=== PATIENT | male | born 1970 | race African-American/Black ===

== ENCOUNTER 2016-03-22 17:59 | Emergency (ER) | payer OTHER ==
[~2016-03-22] VITALS: Ht 172.7 cm; Wt 79.4 kg
[2016-03-22 17:59] VITALS: BP 143/99
[2016-03-22] MEDS ORDERED: KETOROLAC TROMETHAMINE INJ 30 MG/ML VIAL ONE (18:35)
[2016-03-22] MEDS ORDERED: KETOROLAC TROMETHAMINE INJ 60 MG/2 ML VIAL IM ONE (19:00)
== END 2016-03-22 19:11 | disposition home or self-care (01) ==
LOC: ER 18:02
DX: M16.11 Unilateral primary osteoarthritis, right hip (principal); G89.4 Chronic pain syndrome; Z98.890 Other specified postprocedural states
CPT/HCPCS: A4606; J1885; Z7610

== ENCOUNTER 2016-08-04 01:32 | Emergency (ER) | payer OTHER ==
[~2016-08-04] VITALS: Ht 167.6 cm; Wt 81.6 kg
[2016-08-04 01:41] VITALS: BP 120/82
[2016-08-04] MEDS ORDERED: IBUPROFEN 400 MG TABLET PO ONE (02:30)
[2016-08-04] MEDS ORDERED: IBUPROFEN 400 MG TABLET ONE (02:44)
== END 2016-08-04 03:38 | disposition home or self-care (01) ==
LOC: ER 01:34
DX: S79.911A Unspecified injury of right hip, initial encounter (principal); N43.3 Hydrocele, unspecified; M19.90 Unspecified osteoarthritis, unspecified site; W19.XXXA Unspecified fall, initial encounter; Y93.89 Activity, other specified; Y92.89 Other specified places as the place of occurrence of the external cause; Y99.9 Unspecified external cause status
CPT/HCPCS: 73502; 99284; A4606; Z7610; 73510-TC

== ENCOUNTER 2017-02-01 15:33 | Emergency (ER) | payer MEDICAID, OTHER ==
[~2017-02-01] VITALS: Ht 170.2 cm; Wt 81.6 kg
--- NOTE | 2017-02-01 15:45 | NUR ---
BRA 890 FROM HOME C/O WORSENING RT HIP PAIN. HX OF CHRONIC RT HIP PAIN, 12/12 AT THIS TIME. VSS
[2017-02-01] MEDS ORDERED: KETOROLAC TROMETHAMINE INJ 30 MG/ML VIAL ONE (16:06)
[2017-02-01] MEDS ORDERED: KETOROLAC TROMETHAMINE INJ 30 MG/ML VIAL IM ONE (16:30)
[2017-02-01 16:33] VITALS: BP 130/80
--- NOTE | 2017-02-01 16:34 | NUR ---
Patient discharged to home in stable condition. Written and verbal after care instructions given. Patient verbalizes understanding of instruction.
== END 2017-02-01 16:34 | disposition home or self-care (01) ==
LOC: ER 15:35
DX: G89.29 Other chronic pain (principal); M16.11 Unilateral primary osteoarthritis, right hip; F17.200 Nicotine dependence, unspecified, uncomplicated; Z98.890 Other specified postprocedural states
CPT/HCPCS: 96372; 99283; A4606; J1885; Z7610

== ENCOUNTER 2017-10-02 10:37 | Emergency (ER) | payer MEDICAID ==
[~2017-10-02] VITALS: Ht 175.3 cm; Wt 68.0 kg
--- NOTE | 2017-10-02 10:57 | NUR ---
A/OX3, NAD VSS C/O BILATERAL HIP PAIN, NO TRAUMA. WILL CONT TO MONITOR
--- NOTE | 2017-10-02 10:59 | NUR ---
DR. PORTILLO AT BEDSIDE FOR EVALUATION
--- NOTE | 2017-10-02 11:09 | NUR ---
pt requesting a pain pill before he gets discharged. dr feliciano notified.
[2017-10-02] MEDS ORDERED: TRAMADOL HCL 50 MG TABLET ONE (11:12)
[2017-10-02] MEDS ORDERED: IBUPROFEN 600 MG TABLET PO ONE ×2 (11:12→11:30)
[2017-10-02 11:18] VITALS: BP 143/94
--- NOTE | 2017-10-02 11:18 | NUR ---
Patient discharged to home in stable condition. Written and verbal after care instructions given. Patient verbalizes understanding of instruction.
[2017-10-02] MEDS ORDERED: TRAMADOL HCL 50 MG TABLET PO ONE (11:30)
== END 2017-10-02 11:19 | disposition home or self-care (01) ==
LOC: ER 10:38
DX: M16.11 Unilateral primary osteoarthritis, right hip (principal); G89.29 Other chronic pain; F17.200 Nicotine dependence, unspecified, uncomplicated; Z98.890 Other specified postprocedural states
CPT/HCPCS: 99283; A4606; Z7610

== ENCOUNTER 2018-04-13 12:14 | Emergency (ER) | payer MEDICAID ==
[~2018-04-13] VITALS: Ht 170.2 cm; Wt 72.6 kg
--- NOTE | 2018-04-13 13:08 | NUR ---
BIB RA 90 C/O RIGHT HIP PAIN ( CHRONIC ) NO RECENT INJURY. DIFFICULTY WITH AMBULATION. PT IS AOX4, VSS, RR EVEN AND UNLABORED. SKIN WARM, DRY, INTACT. NO ACUTE DISTRESS NOTED. FAMILY MEMBER AT BEDSIDE. READY FOR EVAL.
[2018-04-13] MEDS ORDERED: KETOROLAC TROMETHAMINE INJ 60 MG/2 ML VIAL IM ONE (13:30)
[2018-04-13] MEDS ORDERED: KETOROLAC TROMETHAMINE INJ 30 MG/ML VIAL ONE (13:41)
--- NOTE | 2018-04-13 14:57 | NUR ---
Antonio jones in [facility] - 04/13/18 at 1529 by DAVID Patient discharged to home in stable condition. Written and verbal after care instructions given. Patient verbalizes understanding of instruction.
--- NOTE | 2018-04-13 15:02 | NUR ---
Patient is resting comfortably in bed. Easily aroused. VSS
--- NOTE | 2018-04-13 15:14 | NUR ---
Patient discharged to home in stable condition. Written and verbal after care instructions given. Patient verbalizes understanding of instruction.
[2018-04-13 15:30] VITALS: BP 126/82
--- NOTE | 2018-04-13 15:53 | NUR ---
UNABLE TO DEPART PT. WILL ADVANCE TO DISCHARGE
== END 2018-04-13 15:53 | disposition home or self-care (01) ==
LOC: ER 12:14
DX: M16.11 Unilateral primary osteoarthritis, right hip (principal); G89.29 Other chronic pain; F12.90 Cannabis use, unspecified, uncomplicated
CPT/HCPCS: 96372; 99283; A4606; J1885

== ENCOUNTER 2020-04-20 07:16 | Emergency (ER) | payer MEDICAID ==
[~2020-04-20] VITALS: Ht 177.8 cm; Wt 73.5 kg
[2020-04-20 07:33] VITALS: BP 137/77
--- NOTE | 2020-04-20 07:38 | NUR ---
DR. DILLON AT BEDSIDE FOR EVAL.
[2020-04-20] MEDS ORDERED: HYDROCODONE/APAP 5/325MG TABLET ONE (07:45)
[2020-04-20] MEDS ORDERED: KETOROLAC TROMETHAMINE INJ 60 MG/2 ML VIAL IM ONE ×2 (07:45→08:00)
--- NOTE | 2020-04-20 07:45 | NUR ---
PT PROVIDED WITH WARM BLANKET AND JUICE.
--- NOTE | 2020-04-20 07:50 | NUR ---
MANAGER [employer] AT BEDSIDE FOR XRAY.
[2020-04-20] MEDS ORDERED: HYDROCODONE/APAP 5/325MG TABLET PO ONE (08:00)
[2020-04-20] MEDS ORDERED: TRAM-351 PO (08:17)
[2020-04-20] MEDS ORDERED: IBUP-1957 PO (08:17)
--- NOTE | 2020-04-20 08:27 | NUR ---
Patient discharged to home in stable condition. Written and verbal after care instructions given. Patient verbalizes understanding of instruction.
== END 2020-04-20 08:27 | disposition home or self-care (01) ==
LOC: ER 07:18
DX: M16.0 Bilateral primary osteoarthritis of hip (principal); G89.29 Other chronic pain
CPT/HCPCS: 73502; 73503; 96372; 99283; J1885

== ENCOUNTER 2021-01-07 14:41 | Emergency (ER) | payer MEDICAID ==
[~2021-01-07] VITALS: Ht 175.3 cm; Wt 68.0 kg
[~2021-01-07 14:41] MED LIST: IBUP-1957 PO; TRAM-351 PO
[2021-01-07 14:53] VITALS: BP 132/90
[2021-01-07] MEDS ORDERED: HYDROCODONE/APAP 5/325MG TABLET PO ONE (15:30)
[2021-01-07] MEDS ORDERED: ONDANSETRON 4 MG TAB.RAPDIS SL ONE (15:30)
[2021-01-07] MEDS ORDERED: HYDROCODONE/APAP 5/325MG TABLET ONE (15:52)
[2021-01-07] MEDS ORDERED: ONDANSETRON 4 MG TAB.RAPDIS ONE (15:52)
--- NOTE | 2021-01-07 16:02 | NUR ---
BACK FROM CT,MEDICATED ORDERED
[2021-01-07] MEDS ORDERED: HYDR-4303 PO (16:08)
[2021-01-07] MEDS ORDERED: NAPR-1009 PO (16:08)
== END 2021-01-07 17:00 | disposition home or self-care (01) ==
LOC: ER 14:43
DX: G89.29 Other chronic pain (principal); M25.552 Pain in left hip; M25.551 Pain in right hip; F12.90 Cannabis use, unspecified, uncomplicated; Z79.899 Other long term (current) drug therapy
CPT/HCPCS: 73521; 99283; Q0162

== ENCOUNTER 2022-07-17 11:35 | Emergency (ER) | payer MEDICAID ==
[~2022-07-17] VITALS: Ht 175.3 cm; Wt 82.1 kg
[~2022-07-17 11:35] MED LIST changes: +HYDR-4303 PO; +NAPR-1009 PO
[2022-07-17] MEDS ORDERED: IBUP-1957 PO ×2 (11:44→12:25)
--- NOTE | 2022-07-17 11:45 | NUR ---
C/O CHRONIC BILATERAL HIP PAIN "FOR A LONG TIME" WORSE LAST 2 DAYS.
[2022-07-17] MEDS ORDERED: KETOROLAC TROMETHAMINE INJ 30 MG/ML VIAL IM ONE (12:00)
[2022-07-17] MEDS ORDERED: KETOROLAC TROMETHAMINE INJ 30 MG/ML VIAL ONE (12:06)
--- NOTE | 2022-07-17 12:28 | NUR ---
Patient discharged to home in stable condition. Written and verbal after care instructions given. Patient verbalizes understanding of instruction.
[2022-07-17 12:29] VITALS: BP 122/84
== END 2022-07-17 12:31 | disposition home or self-care (01) ==
LOC: ER 11:38
DX: M16.0 Bilateral primary osteoarthritis of hip (principal); M25.552 Pain in left hip; M25.551 Pain in right hip; F17.200 Nicotine dependence, unspecified, uncomplicated; Z79.899 Other long term (current) drug therapy; G89.29 Other chronic pain
CPT/HCPCS: 99283; 96372; J1885

== ENCOUNTER 2022-12-25 11:46 | Emergency (ER) | payer MEDICAID ==
[~2022-12-25] VITALS: Ht 170.2 cm; Wt 77.1 kg
[2022-12-25] MEDS ORDERED: GABA-532 PO (12:23)
[2022-12-25 12:38] VITALS: BP 120/82; TEMP 98.5; O2SAT 97
== END 2022-12-25 12:38 | disposition home or self-care (01) ==
LOC: ER 11:50
DX: G89.29 Other chronic pain (principal); M25.552 Pain in left hip; M25.551 Pain in right hip; F17.200 Nicotine dependence, unspecified, uncomplicated; W01.0XXA Fall on same level from slipping, tripping and stumbling without subsequent striking against object, initial encounter; Y93.89 Activity, other specified; Y92.89 Other specified places as the place of occurrence of the external cause; Y99.8 Other external cause status

== ENCOUNTER 2023-10-25 13:12 | Emergency (ER) | payer MEDICAID ==
[~2023-10-25] VITALS: Ht 170.2 cm; Wt 81.6 kg
[~2023-10-25 13:12] MED LIST changes: +GABA-532 PO
[2023-10-25 13:22] VITALS: TEMP 98
--- NOTE | 2023-10-25 13:25 | NUR ---
BILATERAL FLANK PAIN AND NUMBNESS OF BOTH UPPER EXTREMITIES X 3 DAYS
[2023-10-25] MEDS ORDERED: ONDANSETRON HCL/PF 4 MG/2 ML VIAL ONE (14:28)
[2023-10-25] MEDS ORDERED: PANTOPRAZOLE 40 MG VIAL ONE (14:28)
[2023-10-25] MEDS ORDERED: KETOROLAC TROMETHAMINE INJ 30 MG/ML VIAL ONE (14:29)
[2023-10-25] MEDS ORDERED: MORPHINE SULFATE INJ 4 MG/ML DISP.SYRIN ONE (14:29)
[2023-10-25 14:37] LABS: BASOPHILS % (AUTO) 0.7 % (0.0-2.0); EOSINOPHILS # (AUTO) 0.1 K/uL (0.0-0.7); EOSINOPHILS % (AUTO) 1.2 % (0.0-6.0); HEMATOCRIT 44 % (39-51); HEMOGLOBIN 14.5 g/dL (13.5-17.5); LYMPHOCYTES # (AUTO) 0.9 K/uL (0.8-4.8); MEAN CORPUSCULAR HEMOGLOBIN 30 PG (26.0-33.0); MEAN CORPUSCULAR HGB CONC 33 g/dl (31.0-36.0); MEAN CORPUSCULAR VOLUME 92 fL (80-96); MONOCYTES # (AUTO) 0.7 K/uL (0.1-1.30); MONOCYTES % (AUTO) 13.6 % (2.0-12.0); NEUTROPHILS # (AUTO) 3.5 K/uL (1.8-8.9); NEUTROPHILS % (AUTO) 66.5 % (43.0-81.0); PLATELET COUNT (AUTO) 343 K/uL (150-450); RED BLOOD CELL COUNT(AUTO) 4.84 MIL/uL (4.5-6.0); RED CELL DISTRIBUTION WIDTH 14.6 % (11.5-15.0); WHITE BLOOD COUNT (AUTO) 5.2 K/uL (4.3-11.0)
--- NOTE | 2023-10-25 14:50 | NUR ---
IV ESTABLISHED R AC 20G. SALINE LOCK PLACED.
[2023-10-25 14:51] LABS: INR 0.97 (0.91-1.10); PARTIAL THROMBOPLASTIN TIME 24.2 SEC (24.3-34.3); PROTHROMBIN TIME 10.3 SECS (9.2-11.1)
[2023-10-25] MEDS: ONDANSETRON HCL/PF 4 MG/2 ML VIAL IVP ONE (14:55)
[2023-10-25] MEDS: KETOROLAC TROMETHAMINE 15 MG/ML VIAL IV ONE (14:55)
[2023-10-25] MEDS: IV NS 0.9% 1,000 ML BAG IV ONE (14:55)
[2023-10-25] MEDS: PANTOPRAZOLE 40 MG VIAL IV ONE (14:55)
[2023-10-25] MEDS: MORPHINE SULFATE INJ 2 MG/ML DISP.SYRIN IV ONE (14:57)
[2023-10-25 15:02] LABS: LACTIC ACID 1.4 mmol/L (0.4-2.0)
[2023-10-25 15:09] LABS: ALANINE AMINOTRANSFERASE 34 U/L (12-78); ALBUMIN 2.8 g/dL (3.4-5.0); ALKALINE PHOSPHATASE 78 U/L (46-116); ASPARTATE AMINOTRANSFERASE 36 U/L (15-37); BILIRUBIN,DIRECT 0.1 mg/dL (0.0-0.2); BILIRUBIN,TOTAL 0.3 mg/dL (0.2-1.0); CALCIUM, SERUM 8.9 mg/dL (8.5-10.1); CARBON DIOXIDE 24 mmol/L (21-32); CHLORIDE 107 mmol/L (98-107); CREATININE 1.5 mg/dL (0.6-1.3); GLUCOSE 95 mg/dL (74-106); POTASSIUM 4.5 mmol/L (3.5-5.1); SODIUM SERUM 140 mmol/L (136-145); TOTAL PROTEIN, SERUM 6.4 g/dL (6.4-8.2); UREA NITROGEN, BLOOD 7 mg/dL (7-18)
[2023-10-25] MEDS ORDERED: ONDA4TAB5 PO (16:25)
[2023-10-25] MEDS ORDERED: HYDR-4303 PO (16:25)
[2023-10-25 16:39] VITALS: BP 120/82; O2SAT 97
--- NOTE | 2023-10-25 16:39 | NUR ---
Patient discharged to home in stable condition. Written and verbal after care instructions given. Patient verbalizes understanding of instruction.IV removed. Catheter intact and site benign. Pressure and 4x4 applied to site. No bleeding noted.
== END 2023-10-25 16:40 | disposition home or self-care (01) ==
LOC: ER 13:21
DX: R11.2 Nausea with vomiting, unspecified (principal); R19.7 Diarrhea, unspecified; F17.200 Nicotine dependence, unspecified, uncomplicated; Z79.1 Long term (current) use of non-steroidal anti-inflammatories (NSAID); Z79.891 Long term (current) use of opiate analgesic; Z79.899 Other long term (current) drug therapy
CPT/HCPCS: 99285; 74176; 96374; 96375; 71045; 96361; 93005; 84145; 85025; 80048; 87040; 83605; 80076; 36415; 84484; 85730; J1885; J2405; J7030; J2470; J2270

== ENCOUNTER 2023-12-15 06:47 | Emergency (ER) | payer MEDICAID ==
[~2023-12-15] VITALS: Ht 170.2 cm; Wt 72.6 kg
[~2023-12-15 06:47] MED LIST changes: +ONDA4TAB5 PO
[2023-12-15 07:28] VITALS: BP 153/96; TEMP 98.4
[2023-12-15] MEDS ORDERED: SULF1TAB48 PO (08:06)
[2023-12-15 08:29] VITALS: O2SAT 100
== END 2023-12-15 08:32 | disposition home or self-care (01) ==
LOC: EDUNIT# 06:47 → ER 06:57
DX: L03.011 Cellulitis of right finger (principal); G89.29 Other chronic pain; M25.552 Pain in left hip; F12.90 Cannabis use, unspecified, uncomplicated; F17.210 Nicotine dependence, cigarettes, uncomplicated